=== PATIENT | female | born 1995 | race Hispanic/Latino ===

== ENCOUNTER 2018-02-01 08:12 | Emergency (ER) | payer OTHER ==
[2018-02-01 09:18] LABS: Bilirubin Negative (Negative); Blood, Urine Negative (Negative); Clarity CLEAR (Clear); Glucose, Urine (Dipstick) Negative (Negative); Leukocyte Negative (Negative); Nitrite Negative (Negative); Protein, Urine (Dipstick) Negative (Neg-Trace); Specific Gravity, Urine 1.029 (1.002-1.036); Urobilinogen 0.2 mg/dL (0.2-1.0); pH, Urine 5.5 (5.0-9.0)
[2018-02-01 09:46] LABS: BHCG - Serum Negative (NEGATIVE); Pregs Control Background? CLEAR/WHITE (CLR/WHITE); Pregs Control Bar Appear? YES (CONTROL BAR)
[2018-02-01 09:52] LABS: #Basophils 0.1 thou/uL (0.0-0.2); #Eosinphils 0.2 thou/uL (0.0-0.7); #Monocytes 0.5 thou/uL (0.11-0.59); #Neutrophils 4.7 thou/uL (1.40-6.50); %Basophils 0.8 % (0.0-1.0); %Eosinophils 2.4 % (0.0-10.0); %Lymphocytes 26.4 % (21.0-51.0); %Monocytes 7.2 % (0.0-10.0); %Neutrophils 63.1 % (42.0-75.0); Hemoglobin 13.6 g/dL (12.0-16.0); Mean Corpuscular HGB CONC 32.5 g/dL (32.0-36.0); Mean Corpuscular Hemoglobin 28.4 pg (27.0-31.0); Mean Corpuscular Volume 87.4 fL (78.0-98.0); Mean Platelet Volume 7.4 fL (7.4-10.4); Platelet Count 328 thou/uL (130-400); RBC Distribution Width 11.6 % (11.5-14.5); White Blood Cell (WBC) Count 7.4 thou/uL (4.8-10.8)
[2018-02-01 09:54] LABS: ALT (SGPT) 20 U/L (8-55); AST (SGOT) 17 U/L (5-34); Albumin 4.2 g/dL (3.5-5.0); Alkaline Phosphatase 112 U/L (40-150); Anion Gap 13 mmol/L (10-20); BUN (Urea Nitrogen) 17 mg/dL (7.0-18.7); Bilirubin, Total 0.3 mg/dL (0.2-1.2); Calc. Creatinine Clearance 0 mL/min (70-130); Calcium 9.4 mg/dL (7.8-10.44); Carbon Dioxide 21 mmol/L (22-29); Chloride 107 mmol/L (98-107); Estimated GFR-MDRD 90; Globulin 3.2 g/dL (2.4-3.5); Glucose 105 mg/dL (70-105); Potassium 3.9 mmol/L (3.5-5.1); Protein, Total 7.4 g/dL (6.0-8.3); Sodium 137 mmol/L (136-145)
[2018-02-01 09:58] LABS: CKMB 1.3 ng/mL (0-6.6); Troponin I Less than 0.010 ng/mL (< 0.028)
--- NOTE | 2018-02-01 10:10 | RAD ---
PORTABLE CHEST 1 VIEW: Date: 02/01/18 Time: 0737 hours HISTORY: Dyspnea. FINDINGS: The heart size is normal. The lungs are expanded without focal areas of consolidation, pneumothoraces , or pleural effusions. IMPRESSION: No acute process. POS: [facility]
[2018-02-01 12:34] LABS: Lipase 22 U/L (8-78)
== END 2018-02-01 10:40 | disposition home or self-care (01) ==
LOC: ERS 08:12 → EDBD 08:12 → ERS 10:40
DX: R30.0 Dysuria (principal); R06.02 Shortness of breath; M54.5 Low back pain; I10 Essential (primary) hypertension; G40.909 Epilepsy, unspecified, not intractable, without status epilepticus; Z79.899 Other long term (current) drug therapy
CPT/HCPCS: 71045; 80053; 81003; 82553; 83690; 83880; 84484; 84703; 85025; 93005

== ENCOUNTER 2018-07-07 11:20 | Emergency (ER) | payer OTHER ==
[~2018-07-07 11:20] MED LIST: ISOVUE-370 76%-LOCM 1 ML ONE
[2018-07-07 12:01] LABS: #Basophils 0.1 thou/uL (0.0-0.2); #Eosinphils 0.3 thou/uL (0.0-0.7); #Lymphocytes 3.2 thou/uL (1.20-3.40); #Monocytes 0.6 thou/uL (0.11-0.59); #Neutrophils 6.6 thou/uL (1.40-6.50); %Basophils 0.7 % (0.0-1.0); %Eosinophils 2.5 % (0.0-10.0); %Lymphocytes 29.5 % (21.0-51.0); %Monocytes 5.6 % (0.0-10.0); %Neutrophils 61.7 % (42.0-75.0); Hemoglobin 14.7 g/dL (12.0-16.0); Mean Corpuscular HGB CONC 33.2 g/dL (32.0-36.0); Mean Corpuscular Hemoglobin 29.1 pg (27.0-31.0); Mean Corpuscular Volume 87.7 fL (78.0-98.0); Mean Platelet Volume 7.5 fL (7.4-10.4); Platelet Count 356 thou/uL (130-400); RBC Distribution Width 11.8 % (11.5-14.5); Red Blood Cell (RBC) Count 5.05 mill/uL (4.20-5.40); White Blood Cell (WBC) Count 10.7 thou/uL (4.8-10.8)
[2018-07-07] MEDS ORDERED: Ondansetron PF 4 MG/2 ML Vial ONE (12:23)
[2018-07-07] MEDS ORDERED: Lorazepam 2 MG/ML VIAL ONE (12:23)
[2018-07-07 12:27] LABS: ALT (SGPT) 50 U/L (8-55); AST (SGOT) 27 U/L (5-34); Albumin 4.6 g/dL (3.5-5.0); Alkaline Phosphatase 115 U/L (40-150); Anion Gap 15 mmol/L (10-20); BUN (Urea Nitrogen) 13 mg/dL (7.0-18.7); Bilirubin, Total 0.3 mg/dL (0.2-1.2); CK (CPK) 115 U/L (29-168); Calc. Creatinine Clearance 0 mL/min (70-130); Calcium 10.2 mg/dL (7.8-10.44); Carbon Dioxide 21 mmol/L (22-29); Chloride 104 mmol/L (98-107); Estimated GFR-MDRD Greater than 90; Globulin 3.4 g/dL (2.4-3.5); Glucose 108 mg/dL (70-105); Lipase 18 U/L (8-78); Sodium 136 mmol/L (136-145)
--- NOTE | 2018-07-07 13:01 | RAD ---
PORTABLE CHEST ONE VIEW: 07/07/2018 12:28 p.m. HISTORY: Chest pain. COMPARISON: 02/01/2018 FINDINGS: The heart size is normal. The lungs are expanded without focal areas of consolidation, pneumothorax, saritha pulmonary edema, or pleural effusions. IMPRESSION: No acute process. POS: [facility]
[2018-07-07 13:04] LABS: BHCG - Serum Negative (NEGATIVE); Pregs Control Background? CLEAR/WHITE (CLR/WHITE); Pregs Control Bar Appear? YES (CONTROL BAR)
--- NOTE | 2018-07-07 13:52 | CT ---
CT PULMONGARY ANGIOGRAM WITH IV CONTRAST AND 3D POSTPROCESSING: Date: 07/07/18 HISTORY: Chest pain. FINDINGS: No filling defects are seen in the central pulmonary arteries to suggest central pulmonary embolism. Peripheral arterial branches are not adequately opacified for satisfactory evaluation. No pleural or pericardial effusions are seen. There is no evidence of aneurysmal dilatation of the thoracic aorta. Dependent changes are noted in the posterior lung krishnan. No acute osseous abnormalities are seen. IMPRESSION: No CT evidence of central pulmonary embolism. POS: [facility]
== END 2018-07-07 13:57 | disposition home or self-care (01) ==
LOC: ERS 11:20
DX: R11.2 Nausea with vomiting, unspecified (principal); R07.9 Chest pain, unspecified; G40.909 Epilepsy, unspecified, not intractable, without status epilepticus; I10 Essential (primary) hypertension; Z79.899 Other long term (current) drug therapy
CPT/HCPCS: 36415; 71045; 71275; 80053; 82550; 83690; 84484; 84703; 85025; 93005; 96361; 96374; 96375; J2060; J2405; Q9966

== ENCOUNTER 2019-01-29 13:41 | Day surgery (SDC) | payer OTHER ==
[2019-01-29 14:01] VITALS: BMI 41.9
[2019-01-29] MEDS ORDERED: hydrALAZINE 20 MG/ML VIAL SLOW IVP PRN (15:49)
--- NOTE | 2019-01-29 15:51 | PDOC.LDHP ---
Labor and Delivery H&P Chief complaint: other HPI: 23 y/o G1 at 26w1d, patient of Dr. Peterson, sent for precautionary evaluation by her work. 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 She had no abdominal trauma and no fall. Denies VB, LOF, ctx , or abdominal pain. +FM ROS neg for HEENT, CV, pulm, GI, , neuro, psych, skin, musculoskeletal, or constitutional symptoms other than mentioned above. OB History Details: First Current complications: none Past Medical History: None Current medications: pre-jenni vitamins Previous surgical history: none Allergies/Adverse Reactions: Allergies Allergy/AdvReac Type Severity Reaction Status Date / Time No Known Allergies Allergy Verified 01/29/19 14:03 Social history: none - Physical Exam Vital signs reviewed and normal: yes General: NAD, resting Lungs: nonlabored breathing Abdomen: gravid Extremeties: no edema FHT: category 1 (140s, mod variability, + accels, no decels) [place] contractions every: none - Assessment 23 y/o G1 at 26w0d with reassuring status and no OB complaints. - Plan -: D/c home with precautions. Advised to follow up as scheduled.
== END 2019-01-29 14:44 | disposition home health service (06) ==
LOC: L&D/OP 13:41
PROVIDERS: ATTEND Obstetrics & Gynecology
DX: Z04.2 Encounter for examination and observation following work accident (principal); Z3A.26 26 weeks gestation of pregnancy
CPT/HCPCS: 99282

== ENCOUNTER 2019-04-01 12:10 | Day surgery (SDC) | payer OTHER ==
[2019-04-01 12:59] VITALS: BMI 41.8
[2019-04-01] MEDS ORDERED: FLU VACC QS2019-20(6MOS UP)/PF 60 MCG/0.5 ML SYRINGE IM ONE (13:15)
[2019-04-01] MEDS ORDERED: Zolpidem Tartrate 5 MG TAB PO PRN (13:28)
[2019-04-01] MEDS ORDERED: Promethazine HCl 25 MG/ML VIAL IM PRN (13:28)
[2019-04-01] MEDS ORDERED: hydrALAZINE 20 MG/ML VIAL SLOW IVP PRN (13:28)
[2019-04-01] MEDS ORDERED: Ondansetron PF 4 MG/2 ML Vial IVP PRN (13:28)
[2019-04-01] MEDS ORDERED: Docusate 100 MG CAP PO PRN (13:28)
[2019-04-01] MEDS ORDERED: Acetaminophen 500 MG TAB PO PRN (13:28)
[2019-04-01] MEDS ORDERED: Butorphanol Tartrate 1 MG/ML VIAL SLOW IVP PRN (13:28)
[2019-04-01] MEDS ORDERED: Lactated Ringer's 1,000 ML IV SCH ×2 (13:30)
--- NOTE | 2019-04-01 13:37 | PDOC.LDHP ---
Labor and Delivery H&P HPI: 23 y/o at 34 weeks 2 days, who presents to clinic today with several new concerns. BP elevated to 140s /100s. Urine shows 3+ blood, 2+ protein, but no leukocytes or nitrates. No CVA tenderness. New right lower quadrant intermittent shooting pain suggestive of right renal lithiasis. Doubt appendicitis from clinical picture. Pain too low for typical gallbladder pain. Family hx in mother of preeclampsia. BMI today 43. NST reactive in clinic w/o decels. BPP done 10/22 with no concerns in clinic. LGA fetus today (6 pounds 12 ounces). Current gestational age (weeks): 34 Due date: 05/11/19 Grav: 1 Para: 0 Current complications: preeclampsia without severe features Abnormal US findings: Yes (LGA fetus) Current medications: pre-jenni vitamins Previous surgical history: none Allergies/Adverse Reactions: Allergies Allergy/AdvReac Type Severity Reaction Status Date / Time No Known Allergies Allergy Verified 01/29/19 14:03 Social history: none - Physical Exam Vital signs reviewed and normal: yes General: NAD, resting Heart: RRR Lungs: CTAB Abdomen: gravid Extremeties: no edema FHT: category 1 - Assessment IUP at 34 weeks 2 days, mild preeclampsia suggested by clinical picture. Possible renal lithiasis. - Plan Plan: other (admit to observation, pre-eclamsia labs, repeat urinalysis, BPP ordered for AM.)
[2019-04-01 14:07] LABS: Hemoglobin 11.3 g/dL (12.0-16.0); Mean Corpuscular Hemoglobin 28.5 pg (27.0-31.0); Mean Platelet Volume 7.6 fL (7.4-10.4); Platelet Count 254 thou/uL (130-400); RBC Distribution Width 12.5 % (11.5-14.5); Red Blood Cell (RBC) Count 3.98 mill/uL (4.20-5.40); White Blood Cell (WBC) Count 13.5 thou/uL (4.8-10.8)
[2019-04-01 14:38] LABS: ALT (SGPT) 10 U/L (8-55); AST (SGOT) 11 U/L (5-34); Albumin 3.4 g/dL (3.5-5.0); Alkaline Phosphatase 104 U/L (40-110); Anion Gap 13 mmol/L (10-20); BUN (Urea Nitrogen) 5 mg/dL (7.0-18.7); Bilirubin, Total 0.2 mg/dL (0.2-1.2); Calc. Creatinine Clearance 284 mL/min (70-130); Calcium 8.7 mg/dL (7.8-10.44); Carbon Dioxide 21 mmol/L (22-29); Chloride 108 mmol/L (98-107); Estimated GFR-MDRD Greater than 90; Globulin 3.1 g/dL (2.4-3.5); Glucose 76 mg/dL (70-105); Potassium 3.6 mmol/L (3.5-5.1); Protein, Total 6.5 g/dL (6.0-8.3); Sodium 138 mmol/L (136-145)
[2019-04-01 14:50] LABS: Syphilis Antibody Nonreactive (Nonreactive); Syphilis Antibody Index 0.05 S/CO (<1.00 Non-Reactive)
[2019-04-01 14:51] LABS: HBSAg Index 0.16 S/CO (0-0.99); Hep B Surf Ag Non-Reactive S/CO (NonReactive)
[2019-04-01 15:49] LABS: Bilirubin Negative (Negative); Blood, Urine Trace (Negative); Clarity Clear (Clear); Glucose, Urine (Dipstick) Normal (Negative); Leukocyte Negative Leu/uL (Negative); Nitrite Negative (Negative); Protein, Urine (Dipstick) Negative (Neg-Trace); Squamous Epithelial 0-3 HPF (0-3); Urobilinogen Normal mg/dL (Less than 2); WBC/HPF 0-3 HPF (0-3)
[2019-04-01 15:53] LABS: Bacteria/HPF 1+ HPF (None Seen)
[2019-04-01 16:05] LABS: Creatinine, Urine 71.41 mg/dL (47-110)
== END 2019-04-01 16:16 | disposition home health service (06) ==
LOC: L&D/OP 12:10
PROVIDERS: ATTEND Obstetrics & Gynecology
DX: O14.03 Mild to moderate pre-eclampsia, third trimester (principal); O99.89 Other specified diseases and conditions complicating pregnancy, childbirth and the puerperium; R10.31 Right lower quadrant pain; Z3A.34 34 weeks gestation of pregnancy
CPT/HCPCS: 36415; 80053; 81001; 82570; 84156; 85027; 86780; 86850; 86900; 86901; 87340; 99285

== ENCOUNTER 2019-04-09 12:17 | Day surgery (SDC) | payer OTHER ==
[2019-04-09 13:25] VITALS: BP 111/69; TEMP 98; BMI 42.1
[2019-04-09] MEDS ORDERED: hydrALAZINE 20 MG/ML VIAL SLOW IVP PRN (14:01)
--- NOTE | 2019-04-09 14:34 | PRG ---
DATE OF SERVICE: 04/09/2019 TIME OF SERVICE: 1400 hours. PRESENTING COMPLAINT: Elevated blood pressure at work, 35 to 36 weeks. HISTORY OF PRESENT ILLNESS: Ms. Craft is a 23-year-old primigravida, sees Dr. Ariel Peterson. She has a history of chronic hypertension, epilepsy, SVT. She had an evaluation earlier in the week for possible preeclampsia with a normal protein to creatinine ratio, normal lab work and improved blood pressure. Dr. Peterson decided that she did not have preeclampsia, started on metoprolol and discharged her home with blood pressure, she reports, 150/100 at work without headache and 138/100 without headaches. Denies blurred vision. 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 Blood type O positive, antibody negative. Pap negative. Rubella immune. VDRL nonreactive. Hepatitis B, GC, chlamydia negative. PAST MEDICAL HISTORY: Significant for anxiety, hypertension, outside of . SURGICAL HISTORY: Positive for breast reduction. ALLERGIES: NONE. MEDICATIONS: Metoprolol 100 p.o. b.i.d. and vitamins. SOCIAL HISTORY: Denies tobacco, alcohol, or IV drug abuse. FAMILY HISTORY: Noncontributory REVIEW OF SYSTEMS: Noncontributory. PHYSICAL EXAMINATION: GENERAL: A female resting comfortably. HEENT: Within normal limits. LUNGS: Clear to auscultation bilaterally. HEART: Regular rate and rhythm. BREASTS: Without masses bilaterally. ABDOMEN: Soft, nontender. Fundal height 35. FHTs 140s. EXTREMITIES: No clubbing, cyanosis, or edema. 1+ DTRs. VITAL SIGNS: Temperature was 98.8, pulse 85, respirations 18, initial blood pressure was 118/82. Serial blood pressures were carried out with no systolics greater than 128, no diastolics greater than 90. Laboratory was not performed as earlier in the week the patient's protein creatinine ratio and preeclampsia labs were within normal limits. Prolonged monitoring is carried out with outcome category 1 heart rate tracing, active fetus, baseline 140s. IMPRESSION: The patient with gestational hypertension, started on metoprolol by Dr. Ariel Peterson with non-elevated blood pressures on labor and delivery with serial monitoring. PLAN: ER precautions, discharge home. Keep scheduled followup with Dr. Peterson. Job ID: [id number]
== END 2019-04-09 14:45 | disposition home health service (06) ==
LOC: L&D/OP 12:17
PROVIDERS: ATTEND Obstetrics & Gynecology
DX: O13.3 Gestational [pregnancy-induced] hypertension without significant proteinuria, third trimester (principal); O99.353 Diseases of the nervous system complicating pregnancy, third trimester; G40.909 Epilepsy, unspecified, not intractable, without status epilepticus; Z3A.36 36 weeks gestation of pregnancy
CPT/HCPCS: 59025; 82570; 84156; 99283

== ENCOUNTER 2019-04-20 17:31 | Inpatient (IN) | payer OTHER ==
[~2019-04-20 17:31] MED LIST changes: +Bupivacaine 0.25% HCL 30 ML VIAL ONE; +Bupivacaine PF 0.5% 30 ML VIAL ONE; -ISOVUE-370 76%-LOCM 1 ML ONE
[2019-04-20 18:23] VITALS: BMI 43.5
[2019-04-20] MEDS ORDERED: Misoprostol 200 MCG TAB PR PRN (19:02)
[2019-04-20] MEDS ORDERED: Acetaminophen 500 MG TAB PO PRN (19:02)
[2019-04-20] MEDS ORDERED: Docusate 100 MG CAP PO PRN (19:02)
[2019-04-20] MEDS ORDERED: Ondansetron PF 4 MG/2 ML Vial IVP PRN (19:02)
[2019-04-20] MEDS ORDERED: Lidocaine 1% (PF) 30 ML VIAL SC PRN (19:02)
[2019-04-20] MEDS ORDERED: hydrALAZINE 20 MG/ML VIAL SLOW IVP PRN (19:02)
[2019-04-20] MEDS ORDERED: Promethazine HCl 25 MG/ML VIAL IM PRN (19:02)
[2019-04-20] MEDS ORDERED: NS / Oxytocin 40 units/1000ml 1,000 ML IV PRN (19:02)
[2019-04-20] MEDS ORDERED: Ibuprofen 800 MG TAB PO PRN (19:02)
[2019-04-20] MEDS ORDERED: HYDROcodone/Acetaminophen 5/325 mg Tablet PO PRN ×2 (19:02)
[2019-04-20] MEDS ORDERED: Diphenoxylate HCl/Atropine Tablet PO PRN ×2 (19:02)
[2019-04-20] MEDS ORDERED: Zolpidem Tartrate 5 MG TAB PO PRN (19:02)
[2019-04-20] MEDS ORDERED: Carboprost 250 MCG/ML AMP IM PRN (19:02)
--- NOTE | 2019-04-20 19:09 | PDOC.LDHP ---
Labor and Delivery H&P Chief complaint: scheduled induction HPI: 23 y/o at 37 and 0/7 weeks with Morbid Obesity, Gestational HTN, presents for ACOG recommended induction of labor. Current gestational age (weeks): 37 Due date: 05/11/19 Grav: 1 Para: 0 Current complications: gestational hypertension, other (Morbid Obesity ) Abnormal US findings: No Current medications: pre-jenni vitamins Allergies/Adverse Reactions: Allergies Allergy/AdvReac Type Severity Reaction Status Date / Time No Known Allergies Allergy Verified 04/09/19 13:21 Social history: none - Physical Exam Vital signs reviewed and normal: yes General: NAD, resting Heart: RRR Lungs: CTAB Abdomen: NTTP Extremeties: trace edema FHT: category 1 - Vaginal Exam cm dilated: 0 - Assessment L&D Assessment: medically indicated induction - Plan Plan: admit to L&D, cervical ripening
[2019-04-20] MEDS ORDERED: NS w/ Oxytocin 10 units 500 ML IV SCH (19:30)
[2019-04-20] MEDS: Misoprostol 100 MCG TAB VAG SCH ×2 (19:33→23:01)
[2019-04-20] MEDS: Lactated Ringer's 1,000 ML IV SCH (19:34)
[2019-04-20] MEDS ORDERED: Penicillin G Potassium 5 MILL.UNITS in Sodium Chloride 0.9% 100 ML IVPB SCH (20:00)
[2019-04-20 20:51] LABS: Hemoglobin 12.2 g/dL (12.0-16.0); Mean Corpuscular HGB CONC 33.3 g/dL (32.0-36.0); Mean Corpuscular Hemoglobin 27.7 pg (27.0-31.0); Mean Corpuscular Volume 83.1 fL (78.0-98.0); Mean Platelet Volume 8.4 fL (7.4-10.4); Platelet Count 265 thou/uL (130-400); RBC Distribution Width 12.9 % (11.5-14.5); White Blood Cell (WBC) Count 14.4 thou/uL (4.8-10.8)
[2019-04-20 21:30] LABS: Syphilis Antibody Nonreactive (Nonreactive); Syphilis Antibody Index 0.06 S/CO (<1.00 Non-Reactive)
[2019-04-20 22:26] LABS: HBSAg Index 0.17 S/CO (0-0.99); Hep B Surf Ag Non-Reactive S/CO (NonReactive)
[2019-04-21] MEDS: Misoprostol 100 MCG TAB VAG SCH ×4 (02:53→15:26)
[2019-04-21] MEDS: Lactated Ringer's 1,000 ML IV SCH ×3 (02:58→22:50)
[2019-04-21] MEDS: NS w/ Oxytocin 10 units 500 ML IV SCH (04:53)
[2019-04-21] MEDS: Penicillin G 2.5 MILL.units 2.5 MILL.UNITS in Premix Bag 1 BAG IVPB SCH ×2 (04:54→04:55)
[2019-04-21] MEDS: Butorphanol Tartrate 1 MG/ML VIAL SLOW IVP PRN ×2 (15:15→21:04)
[2019-04-22] MEDS ORDERED: Fentanyl 4 mcg/Bup 0.1% Cadd 100 ML ONE ×3 (00:31→15:11)
[2019-04-22] MEDS: Fentanyl 4 mcg/Bupivacaine 0.1% Cassette 100 ML EPIDURAL SCH ×3 (00:56→15:16)
[2019-04-22] MEDS ORDERED: diphenhydrAMINE 50 MG/ML VIAL IVP PRN (01:02)
[2019-04-22] MEDS ORDERED: Lactated Ringer's 500 ML IV PRN (01:02)
[2019-04-22] MEDS ORDERED: Naloxone HCl 0.4 mg/ml Vial IVP PRN ×2 (01:02)
[2019-04-22] MEDS ORDERED: ePHEDrine/0.9% NaCl/PF SYRINGE 50 mg/10 ml SLOW IVP PRN (01:02)
[2019-04-22] MEDS ORDERED: Acetaminophen 325 MG TAB PO PRN (01:02)
[2019-04-22] MEDS ORDERED: Promethazine HCl 25 MG/ML VIAL IM PRN ×2 (01:02→20:54)
[2019-04-22] MEDS ORDERED: Ondansetron PF 4 MG/2 ML Vial IVP PRN ×2 (01:02→20:54)
[2019-04-22] MEDS ORDERED: Communication Order-Pharmacy FS SCH (01:15)
[2019-04-22] MEDS ORDERED: Penicillin G Potassium 5 MILL.UNITS in Sodium Chloride 0.9% 100 ML IVPB SCH (06:30)
[2019-04-22] MEDS: Penicillin G 2.5 MILL.units 2.5 MILL.UNITS in Premix Bag 1 BAG IVPB SCH ×6 (06:48→22:05)
[2019-04-22] MEDS ORDERED: Measles/Mumps/Rubella 10 MCG/0.5 ML VIAL SC ONE (09:00)
[2019-04-22] MEDS: Misoprostol 100 MCG TAB VAG SCH ×3 (10:53→22:06)
[2019-04-22] MEDS ORDERED: HYDROcodone/Acetaminophen 5/325 mg Tablet PO PRN ×2 (20:54)
[2019-04-22] MEDS ORDERED: Lanolin Ointment 7 GM TUBE TOP PRN (20:54)
[2019-04-22] MEDS ORDERED: hydrALAZINE 20 MG/ML VIAL SLOW IVP PRN (20:54)
[2019-04-22] MEDS ORDERED: NS / Oxytocin 40 units/1000ml 1,000 ML IV SCH (20:54)
[2019-04-22] MEDS ORDERED: diphenhydrAMINE 25 MG CAP PO PRN (20:54)
[2019-04-22] MEDS ORDERED: Preparation H Ointment 28 GM TUBE PR PRN (20:54)
[2019-04-22] MEDS ORDERED: Zolpidem Tartrate 5 MG TAB PO PRN (20:54)
[2019-04-22] MEDS ORDERED: Benzocaine-Menthol 82.5 ML CAN TOP PRN (20:54)
[2019-04-22] MEDS ORDERED: Bisacodyl 10 MG SUPP PR PRN (20:54)
[2019-04-22] MEDS ORDERED: Milk Of Magnesia 30 ML UDCUP PO PRN (20:54)
[2019-04-22] MEDS ORDERED: Misoprostol 200 MCG TAB VAG PRN (20:54)
[2019-04-22] MEDS: Ibuprofen 800 MG TAB PO SCH (21:49)
[2019-04-22] MEDS: Docusate Calcium (SURFAK) 240 MG CAP PO SCH (21:49)
[2019-04-22] MEDS: NS w/ Oxytocin 10 units 500 ML IV SCH (22:03)
[2019-04-22] MEDS: Lactated Ringer's 1,000 ML IV SCH (22:05)
[2019-04-23 05:34] LABS: Hemoglobin 10.1 g/dL (12.0-16.0); Mean Corpuscular HGB CONC 30.3 g/dL (32.0-36.0); Mean Corpuscular Hemoglobin 25.4 pg (27.0-31.0); Mean Corpuscular Volume 83.9 fL (78.0-98.0); Mean Platelet Volume 7.8 fL (7.4-10.4); Platelet Count 223 thou/uL (130-400); RBC Distribution Width 12.9 % (11.5-14.5); Red Blood Cell (RBC) Count 3.97 mill/uL (4.20-5.40); White Blood Cell (WBC) Count 17.2 thou/uL (4.8-10.8)
[2019-04-23] MEDS: Ibuprofen 800 MG TAB PO SCH ×3 (06:02→21:35)
[2019-04-23] MEDS: Ferrous Sulfate 325 MG TAB PO SCH ×2 (06:56→19:28)
[2019-04-23] MEDS ORDERED: Measles/Mumps/Rubella 10 MCG/0.5 ML VIAL SC ONE (09:00)
[2019-04-23] MEDS ORDERED: Varicella virus, LIVE 0.5 ML VIAL SC ONE (09:00)
[2019-04-23] MEDS ORDERED: Adacel (T-DAP) 0.5 ML SYRINGE IM ONE (09:00)
[2019-04-23] MEDS: Docusate Calcium (SURFAK) 240 MG CAP PO SCH ×2 (09:05→21:35)
[2019-04-23] MEDS: Prenatal Vitamin 1 TAB PO SCH (09:05)
--- NOTE | 2019-04-23 13:16 | PDOC.PP ---
Post Progress Note Post Day #: 1 PO intake tolerated: yes Flatus: yes Ambulation: yes Vital Signs (12 hours) Temp Pulse Resp BP Pulse Ox 04/23/19 07:37 98.3 F 79 20 119/77 98 04/23/19 04:00 98.2 F 79 16 135/90 99 Weight Weight 270 lb - Physical Examination General: NAD Cardiovascular: no m/r/g, RRR Respiratory: clear to auscultation bilaterally, non-labored breathing Abdominal: + bowel sounds, lochia, no distention, appropriately TTP Extremities: negative homans (B) Neurological: no gross focal deficits Psychiatric: A&Ox3, normal affect Result Diagrams: 04/23/19 05:22 Additional Labs: Post Labs Blood Type O POSITIVE 04/20/19 19:25 Hep Bs Antigen Non-Reactive S/CO (NonReactive) 04/20/19 19:25 - Assessment/Plan DC home planned tomorrow
--- NOTE | 2019-04-24 03:52 | DN ---
DATE OF PROCEDURE: 04/22/2019 TIME OF SERVICE: At 1737 hours Central Standard Time. PREOPERATIVE DIAGNOSES: Intrauterine at 37 weeks and two days with gestational hypertension and induction of labor. POSTOPERATIVE DIAGNOSES: Intrauterine at 37 weeks and two days with gestational hypertension and induction of labor. PROCEDURE PERFORMED: Spontaneous vaginal delivery over first-degree laceration of the perineum. FINDINGS: Viable male weighing 3482 g or 7 pounds 11 ounces. Apgars 9 and 9. QUANTITATIVE BLOOD LOSS: 75 mL. COMPLICATIONS: None. PROCEDURE IN DETAIL: The patient presented to [facility] where she was admitted to the labor and delivery service. The patient underwent a normal and uneventful labor with normal cervical dilatation until she was found to be completely dilated. She was then allowed to push and was able to bring the baby down and delivered the baby in a vertex presentation without difficulties. Once the head delivered in occiput anterior position, the shoulders followed spontaneously along with the rest of the baby's body. Once out the baby's mouth and nose were bulb suctioned. The cord was clamped and cut and baby was handed to waiting attendants. Cord blood was collected. Gentle fundal massage was performed and the placenta delivered intact without problems. Hemostasis was assured. Quantitative blood loss was calculated. Inspection of the cervix, vaginal vault, and perineum did not reveal any lacerations needing suturing. Once again, hemostasis was within normal limits and the patient was allowed to recover in the labor and delivery room. Baby went to nursery. Job ID: [id number]
[2019-04-24] MEDS: Ibuprofen 800 MG TAB PO SCH ×2 (05:34→13:53)
[2019-04-24 06:09] LABS: Bacteria/HPF None Seen HPF (None Seen); Bilirubin Negative (Negative); Blood, Urine 3+ (Negative); Clarity Clear (Clear); Glucose, Urine (Dipstick) Normal (Negative); Leukocyte 500 Leu/uL (Negative); Nitrite Negative (Negative); Protein, Urine (Dipstick) 10 mg/dL (Neg-Trace); RBC/HPF Greater than 50 HPF (0-3); Urobilinogen Normal mg/dL (Less than 2); WBC/HPF Greater than 50 HPF (0-3)
[2019-04-24 08:01] VITALS: BP 117/65; TEMP 97.9
[2019-04-24] MEDS: Ferrous Sulfate 325 MG TAB PO SCH (08:57)
[2019-04-24] MEDS: Docusate Calcium (SURFAK) 240 MG CAP PO SCH (09:17)
[2019-04-24] MEDS: Prenatal Vitamin 1 TAB PO SCH (09:17)
--- NOTE | 2019-04-26 07:22 | PQF ---
Danielle Craft DAVID MD [id number] CLINICAL DOCUMENTATION CLARIFICATION FORM: POST DISCHARGE Addendum to original discharge summary date: ____ Late entry note date: __ DATE: 04/26/2019 ATTN: AVERY RIVERS MD Please exercise your independent, professional judgment in responding to the clarification form. Clinical indicators are provided on the bottom of this form for your review Please check appropriate box(s): [ ] Acute blood loss anemia [ ] Post-op anemia related to acute blood loss [ ] anemia unspecified [ ] Other diagnosis [ ] Unable to determine For continuity of documentation, please document condition throughout progress notes and discharge summary. Thank You. CLINICAL INDICATORS - SIGNS / SYMPTOMS / LABS - Hgb: 12.2 on 04/20, 10.1L on 04/23 - HCT: 36.5 on 04/20, 33.3L on 04/23 - Intrauterine at 37 weeks- Delivery note, 04/22, AVERY RIVERS MD - Estimated blood loss: 75ml- Delivery note, 04/22, AVERY RIVERS MD RISK FACTORS - over first degree laceration of the perineum- Delivery note, 04/22SILVESTRE DAVID MD TREATMENTS: - Ferrous sulfate.PO-325mg- MAR-transfer medications (This form is maintained as a part of the permanent medical record) 2014 [employer] All Rights Reserved Bethany [email or web address]
== END 2019-04-24 18:57 | disposition home or self-care (01) | DRG 807 ==
LOC: L&D 17:31 → 3SE 04-22 21:25
PROVIDERS: ADMIT Obstetrics & Gynecology; ATTEND Obstetrics & Gynecology
PROC: 10E0XZZ Delivery of Products of Conception, External Approach (ICD-10-PCS; principal; 2019-04-22)
PROC: 0HQ9XZZ Repair Perineum Skin, External Approach (ICD-10-PCS; 2019-04-22)
DX: O13.4 Gestational [pregnancy-induced] hypertension without significant proteinuria, complicating childbirth (principal); Z37.0 Single live birth; O99.214 Obesity complicating childbirth; E66.01 Morbid (severe) obesity due to excess calories; Z3A.37 37 weeks gestation of pregnancy; O70.0 First degree perineal laceration during delivery
CPT/HCPCS: 36415; 51702; 81001; 85027; 86780; 86850; 86900; 86901; 87340; 90715; J0595; J2405; J2540; J2590; S0020

== ENCOUNTER 2022-01-29 04:13 | Emergency (ER) | payer OTHER ==
[2022-01-29 05:17] LABS: #Monocytes 0.5 thou/uL (0.11-0.59); #Neutrophils 8.3 thou/uL (1.40-6.50); %Eosinophils 0.3 % (0.0-10.0); %Lymphocytes 9.7 % (21.0-51.0); %Monocytes 5.1 % (0.0-10.0); %Neutrophils 84.9 % (42.0-75.0); Hemoglobin 14.9 g/dL (12.0-16.0); Mean Corpuscular Hemoglobin 29.1 pg (27.0-31.0); Mean Corpuscular Volume 88.1 fl (78.0-98.0); Mean Platelet Volume 7.7 fL (7.4-10.4); Platelet Count 287 10x3/uL (130-400); RBC Distribution Width 11.8 % (11.5-14.5); Red Blood Cell (RBC) Count 5.12 mill/uL (4.20-5.40); White Blood Cell (WBC) Count 9.8 10x3/uL (4.8-10.8)
[2022-01-29 05:18] LABS: Pregs Control Background? CLEAR/WHITE (CLR/WHITE); Pregs Control Bar Appear? YES (CONTROL BAR)
[2022-01-29 05:23] LABS: BHCG - Serum Negative (NEGATIVE)
[2022-01-29 05:36] LABS: ALT (SGPT) 15 U/L (8-55); AST (SGOT) 13 U/L (5-34); Albumin 4.4 g/dL (3.5-5.0); Alkaline Phosphatase 110 U/L (40-110); Anion Gap 12 mmol/L (10-20); BUN (Urea Nitrogen) 15 mg/dL (7.0-18.7); Bilirubin, Total 0.6 mg/dL (0.2-1.2); Calc. Creatinine Clearance 0 mL/min (70-130); Calcium 9.6 mg/dL (7.8-10.44); Carbon Dioxide 22 mmol/L (22-29); Chloride 106 mmol/L (98-107); Estimated GFR 106; Globulin 3.4 g/dL (2.4-3.5); Glucose 126 mg/dL (70-105); Potassium 3.9 mmol/L (3.5-5.1); Protein, Total 7.8 g/dL (6.0-8.3); Sodium 136 mmol/L (136-145)
== END 2022-01-29 05:53 | disposition home or self-care (01) ==
LOC: ERS 04:13
DX: G25.81 Restless legs syndrome (principal); I10 Essential (primary) hypertension; G40.909 Epilepsy, unspecified, not intractable, without status epilepticus
CPT/HCPCS: 36415; 80053; 84703; 85025; 99283

== ENCOUNTER 2022-05-15 07:34 | Emergency (ER) | payer SELFPAY | END 2022-05-15 08:04 | disposition home or self-care (01) | LOC: ERS 07:34 | DX: H60.92 Unspecified otitis externa, left ear (principal); I10 Essential (primary) hypertension; G40.909 Epilepsy, unspecified, not intractable, without status epilepticus; Z79.899 Other long term (current) drug therapy | CPT/HCPCS: 99282 ==